=== PATIENT | female | born 1975 | race Caucasian/White ===

== ENCOUNTER 2019-01-05 14:55 | Emergency (ER) | payer MEDICAID ==
[~2019-01-05] VITALS: Ht 167.6 cm; Wt 75.0 kg
[2019-01-05 15:09] VITALS: Ht 167.6 cm; Wt 75.0 kg
[2019-01-05] MEDS ORDERED: ALBUTEROL 0.083% (NEB) 2.5 MG/3 ML AMP HHN STA (18:19)
[2019-01-05] MEDS ORDERED: PRED20TA PO (19:38)
--- NOTE | 2019-01-05 19:43 | ERD ---
ER Documentation Chief Complaint Chief Complaint feels short of breath x1wk, blood work done @ clinic HPI This 43-year-old female presents with sensation of shortness of breath for the last week. She has shortness of breath with ambulation. She denies any history of wheezing or asthma. She had some recent blood work done by her primary doctor. She is concerned because she is taking Synthroid in the past but has not been taking for the last year. Review of laboratory work shows normal CBC, normal cholesterol, normal thyroid studies. She has normal comprehensive metabolic panel as well. There was some recent URIs in the household and made had a URI prior to onset of symptoms. She denies chest pain, hemoptysis, syncope, calf swelling. ROS All systems reviewed and are negative except as per history of present illness. Medications Home Meds Active Scripts Prednisone* (Prednisone*) 20 Mg Tab, 40 MG PO DAILY for 4 Days, TAB Start January 06, 2019 Prov:MARIEL WEBB MD 01/05/19 Allergies Allergies: Coded Allergies: No Known Allergy (Unverified , 01/05/19) PMhx/Soc Hx Miscellaneous Medical Probl: Yes (HYPOTHYROID) Hx Alcohol Use: No Hx Substance Use: No Hx Tobacco Use: No Smoking Status: Never smoker FmHx Family History: No diabetes, No coronary disease, No other Physical Exam Vitals Vital Signs Date Temp Pulse Resp B/P (MAP) Pulse Ox O2 O2 Flow FiO2 Time Delivery Rate 01/05/19 88 16 98 21 18:34 01/05/19 98.7 70 18 115/71 100 15:09 (86) Physical Exam Const: No acute distress Head: Atraumatic Eyes: Normal Conjunctiva ENT: Normal External Ears, Nose and Mouth. Neck: Full range of motion. No meningismus. Resp: Clear to auscultation bilaterally. Mild expiratory phase increased. No rales or retractions. Cardio: Regular rate and rhythm, no murmurs Abd: Soft, non tender, non distended. Normal bowel sounds Skin: No petechiae or rashes Back: No midline or flank tenderness Ext: No cyanosis, or edema Neur: Awake and alert Psych: Normal Mood and Affect Results 24 hrs Current Medications Medications Dose Sig/Jennifer Start Time Status Last (Trade) Ordered Route PRN Stop Time Admin Dose Reason Admin Albuterol 2.5 mg ONCE STAT 01/05/19 DC 01/05/19 (Proventil HHN 18:19 18:32 0.083% (Neb)) 01/05/19 18:21 Procedures/MDM Patient given albuterol treatment x1 and prednisone 40 mg. Patient had clear lungs and felt much better and was able to ambulate without sensation of shortness of breath. Chest X-ray 1V Interpreted by me: Soft Tissue: No acute abnormalities Bones: No acute abnormalities Mediastinum/Cardiac Silhouette/Lungs: No acute abnormalities. Impression- normal 1 view chest x-ray EKG: Rate/Rhythm: Normal Sinus Rhythm. Pulse equals 64 QRS, ST, T-waves: No changes consistent w/ acute ischemia Impression: No evidence of ischemia or arrhythmia. Presents with sensation of shortness of breath resolved after albuterol. She has no signs of cardiac chest pain, review of her laboratory work shows no acute abnormalities. Doubt PE as she is PERC negative. She may have wheezing related to prior URI. Will treat with continuation of Ventolin that she was prescribed by her primary doctor, short course of prednisone, primary care follow-up and return precautions. The patient was stable with no new complaints during the ER course. Clinically, there is no current evidence to suggest meningitis, sepsis, acute abdomen, pneumonia, stroke, acute coronary syndrome, pulmonary embolism, aortic dissection or any other emergent condition appearing to require further evaluation or hospitalization. Patient counseled regarding my diagnostic impression and care plan. Prior to discharge all questions answered. Pt agrees with treatment plan and understands strict return precautions. Pt is instructed to follow up with primary care provider within 24-48 hours. Precautionary instructions provided including instructions to return to the ER if not improving or for any worsening or changing symptoms or concerns. Departure Diagnosis: Primary Impression: Shortness of breath Condition: Stable Patient Instructions: Uri, Viral W/ Wheezing (Adult) Referrals: NO PRIMARY,CARE PHYSICIAN (PCP) Additional Instructions: Examinations normal today. Likely reaction to recent illness with mild wheezing. Recheck for new or worsening symptoms with primary care doctor. Continue albuterol as prescribed. MARIEL WEBB MD Jan 05, 2019 19:43
[2019-01-05 19:55] VITALS: BP 114/67; PULSE 63; RESP 18
== END 2019-01-05 20:19 | disposition home or self-care (01) ==
LOC: FTE 14:55
DX: R06.02 Shortness of breath (principal); E03.9 Hypothyroidism, unspecified
CPT/HCPCS: 71045; 93005; 94664; Z7502; Z7610